=== PATIENT | female | born 1965 | race Caucasian/White ===

== ENCOUNTER 2018-01-27 07:34 | Day surgery (SDC) | payer MEDICARE, OTHER ==
[2018-01-25 10:20] LABS: BASOPHILS % (AUTO) 0.1 % (0-1); EOSINOPHILS # (AUTO) 0.2 X10'3 (0-0.9); EOSINOPHILS % (AUTO) 2.5 % (0-6); LYMPHOCYTES # (AUTO) 1.7 X10'3 (1.1-4.8); MEAN CORPUSCULAR VOLUME 53.2 FL (78-98); MEAN PLATELET VOLUME 7.3 FL (7.4-10.4); MONOCYTES # (AUTO) 0.3 X10'3 (0-0.9); MONOCYTES % (AUTO) 4.7 % (2-12); NEUTROPHILS # (AUTO) 5.1 X10'3 (1.8-7.7); NEUTROPHILS % (AUTO) 69.7 % (42-75); PRE OP HEMATOCRIT 24.7 % (35.0-45.0); PRE OP PLATELET COUNT 139 X10'3 (140-440); RED BLOOD COUNT 4.64 X10'6 (4.20-5.60); RED CELL DISTRIBUTION WIDTH 23.5 % (11.5-14.5)
[2018-01-25 10:32] LABS: COLOR,URINE Yellow (Yellow); GLUCOSE, URINE Negative (Neg); KETONES,URINE Negative (Neg); LEUKOCYTE ESTERASE ,URINE Negative (Neg); NITRITES, URINE Negative (Neg); OCCULT BLOOD,URINE Negative (Neg); PH,URINE 5.5 (4.8-8.0); PROTEIN,URINE Negative (Neg)
[2018-01-25 10:36] LABS: ALBUMIN 3.7 G/DL (3.4-5.0); ALBUMIN/GLOBULIN RATIO 1.1 (1.1-1.5); ALKALINE PHOSPHATASE 61 IU/L (46-116); BLOOD UREA NITROGEN 13 MG/DL (7-18); BUN/CREATININE RATIO 24.5 (6.6-38.0); CALCIUM 8.7 MG/DL (8.5-10.1); CHLORIDE 106 MMOL/L (99-107); CREATININE 0.53 MG/DL (0.40-0.90); PRE OP ALT 18 U/L (30-65); PRE OP ANION GAP 8 (8-16); PRE OP AST 12 U/L (10-37); PRE OP BILIRUB, TOTAL 0.5 MG/DL (0.0-1.0); PRE OP GLUCOSE 93 MG/DL (70-104); PRE OP SODIUM 142 MMOL/L (135-145); TOTAL CARBON DIOXIDE 28.4 MMOL/L (24-32); TOTAL PROTEIN 7.2 G/DL (6.4-8.2); eGFR > 90 ML/MIN
[2018-01-25 10:37] LABS: UA COLLECTION TYPE CLN CATCH MIDSTREAM
[2018-01-25 10:38] LABS: CLARITY,URINE CLOUDY (Clear)
[2018-01-25 10:58] LABS: BACTERIA,URINE 2+ /HPF (Neg); RBC,URINE NONE SEEN /HPF (0-2); SQUAMOUS EPITHELIAL CELL,UR MANY /LPF (FEW); WBC,URINE 0-4 /HPF (0-4)
[2018-01-25 10:59] LABS: MUCUS STRANDS FEW /LPF (Neg)
[2018-01-25 11:00] LABS: PRE OP HEMOGLOBIN 7.4 g/dL (12.0-16.0)
[2018-01-25 11:03] LABS: PLATELET ESTIMATE DECREASED
[2018-01-25 11:04] LABS: ANISOCYTOSIS 3+; HYPOCHROMASIA 1+; MICROCYTOSIS 3+; POLYCHROMASIA 1+; SPHEROCYTES FEW; TEAR DROP CELLS 1+
[2018-01-25 11:05] LABS: ELLIPTOCYTES 1+; STOMATOCYTES FEW; TARGET CELLS FEW
[~2018-01-27] VITALS: Ht 157.5 cm; Wt 93.0 kg
[2018-01-27] VITALS (14 sets, daily range): BP systolic 108–141; BP diastolic 54–91
[~2018-01-27 07:34] MED LIST: LISI10TA4 PO; METF500T4 PO; ceFOXitin 2 GM ADDvantage bag 100 ML IV ONE; famotidine 20mg tablet PO ONE; ringers solution, lacted 1,000 ML IV SCH
[2018-01-27] MEDS ORDERED: LIDOcaine 1% (10mg/ml) 2ml vial ONE (08:26)
[2018-01-27] MEDS ORDERED: BUPIVAcaine/PF 2.5 mg/ml (0.25%) 30ml vial ONE (10:23)
[2018-01-27] MEDS ORDERED: ceFAZolin 1000mg inj ONE (10:23)
[2018-01-27] MEDS ORDERED: fentaNYL/PF 50MCG/1 ML 2ML syringe ONE (10:40)
[2018-01-27] MEDS ORDERED: midazolam 2 mg/2 ml injection ONE (10:40)
[2018-01-27] MEDS ORDERED: propofol inj 20 ML IV ONE (10:42)
[2018-01-27] MEDS ORDERED: rocuronium 10mg/ml inj IV ONE (10:42)
[2018-01-27] MEDS ORDERED: LIDOcaine 2% (20mg/ml) 5ml vial ONE (10:42)
[2018-01-27] MEDS ORDERED: sevoflurane 250ml liquid IH ONE (10:55)
[2018-01-27] MEDS ORDERED: glycopyrrolate 0.2mg/ml inj ONE (11:38)
[2018-01-27] MEDS ORDERED: neostigmine methylsulfate 1 MG/ML 10ml vial ONE (11:38)
[2018-01-27] MEDS ORDERED: ondansetron/PF 4mg/2ml inj ONE (11:39)
[2018-01-27] MEDS ORDERED: ondansetron/PF 4mg/2ml inj IV PRN (11:45)
[2018-01-27] MEDS ORDERED: meperidine/PF 50mg/ml syringe IV PRN ×3 (11:45)
[2018-01-27] MEDS ORDERED: morphine 4 MG/ML inj SYRINge IV PRN (11:45)
[2018-01-27] MEDS ORDERED: ringers solution, lacted 1,000 ML IV SCH (11:45)
[2018-01-27] MEDS ORDERED: proCHLORperazine 10 MG/2 ml inj IV PRN (11:45)
[2018-01-27] MEDS: morphine 4 MG/ML inj SYRINge IV PRN ×2 (12:51→13:17)
[2018-01-27] MEDS ORDERED: traMADol 50MG tablet PO ONE (13:35)
== END 2018-01-27 14:52 | disposition home or self-care (01) ==
LOC: PAS 07:34
PROVIDERS: ATTEND Surgery
DX: K80.10 Calculus of gallbladder with chronic cholecystitis without obstruction (principal); M19.90 Unspecified osteoarthritis, unspecified site; E11.9 Type 2 diabetes mellitus without complications; E66.9 Obesity, unspecified; F32.9 Major depressive disorder, single episode, unspecified; I10 Essential (primary) hypertension; Z98.890 Other specified postprocedural states; Z98.51 Tubal ligation status; Z90.89 Acquired absence of other organs; Z96.651 Presence of right artificial knee joint; Z79.84 Long term (current) use of oral hypoglycemic drugs; Z72.89 Other problems related to lifestyle; Z79.899 Other long term (current) drug therapy; Z91.040 Latex allergy status; Z88.6 Allergy status to analgesic agent; Z88.8 Allergy status to other drugs, medicaments and biological substances; Z68.37 Body mass index [BMI] 37.0-37.9, adult
CPT/HCPCS: 36415; 47562; 80053; 81001; 82948; 85025; 86885; 86900; 86901; 93005; J0690; J0694; J2001; J2175; J2250; J2270; J2405; J2704; J2710; J3010; J3490; J7030; J7120; 88304; A7000

== ENCOUNTER 2018-06-11 08:45 | Inpatient (IN) | payer MEDICARE, OTHER ==
[2018-06-07 15:25] LABS: BASOPHILS % (AUTO) 0.3 % (0-1); EOSINOPHILS # (AUTO) 0.1 X10'3 (0-0.9); EOSINOPHILS % (AUTO) 1.7 % (0-6); HEMOGLOBIN A1C 5.6 % (4.5-6.2); LYMPHOCYTES # (AUTO) 2.1 X10'3 (1.1-4.8); LYMPHOCYTES % (AUTO) 28.7 % (21-51); MEAN CORPUSCULAR HEMOGLOBIN 25.5 PG (27.0-31.0); MEAN CORPUSCULAR HGB CONC 32.2 % (33.0-36.5); MEAN CORPUSCULAR VOLUME 79.2 FL (78-98); MEAN PLATELET VOLUME 8.7 FL (7.4-10.4); MONOCYTES # (AUTO) 0.3 X10'3 (0-0.9); MONOCYTES % (AUTO) 4.5 % (2-12); NEUTROPHILS # (AUTO) 4.8 X10'3 (1.8-7.7); NEUTROPHILS % (AUTO) 64.8 % (42-75); PRE OP HEMATOCRIT 44.6 % (35.0-45.0); PRE OP HEMOGLOBIN 14.4 g/dL (12.0-16.0); PRE OP INR 0.9 INR; PRE OP PLATELET COUNT 255 X10'3 (140-440); PRE OP PROTIME 9.7 SECONDS (9.0-12.0); RED BLOOD COUNT 5.63 X10'6 (4.20-5.60); RED CELL DISTRIBUTION WIDTH 24.5 % (11.5-14.5)
[2018-06-07 15:32] LABS: ALBUMIN/GLOBULIN RATIO 1.2 (1.1-1.5); ALKALINE PHOSPHATASE 75 IU/L (46-116); BLOOD UREA NITROGEN 22 MG/DL (7-18); BUN/CREATININE RATIO 29.3 (6.6-38.0); CALCIUM 9.5 MG/DL (8.5-10.1); CHLORIDE 104 MMOL/L (99-107); CREATININE 0.75 MG/DL (0.40-0.90); PRE OP ALT 25 U/L (30-65); PRE OP ANION GAP 8 (8-16); PRE OP AST 14 U/L (10-37); PRE OP BILIRUB, TOTAL 0.3 MG/DL (0.0-1.0); PRE OP GLUCOSE 133 MG/DL (70-104); PRE OP POTASSIUM 3.6 MMOL/L (3.4-5.1); PRE OP SODIUM 140 MMOL/L (135-145); TOTAL CARBON DIOXIDE 28.2 MMOL/L (24-32); TOTAL PROTEIN 7.4 G/DL (6.4-8.2); eGFR 81 ML/MIN
[~2018-06-11] VITALS: Ht 160 cm; Wt 91.7 kg
[2018-06-11] VITALS (19 sets, daily range): BP systolic 92–126; BP diastolic 45–89
[~2018-06-11 08:45] MED LIST changes: +Cefazolin 2GM/50ML dext iso,osmotic IVPB IV ONE; +IRON PO; +METF500T PO; -METF500T4 PO; +NORMAL SALINE IV ONE; +TRANEXAMIC ACID IV ONE; +VANCOMYCIN INJ 1000 MG in NORMAL SALINE 250ml IV.SOLN IV ONE; -ceFOXitin 2 GM ADDvantage bag 100 ML IV ONE
[2018-06-11] MEDS ORDERED: TRANEXAMIC ACID IV ONE (09:30)
[2018-06-11] MEDS ORDERED: NORMAL SALINE IV ONE (09:30)
[2018-06-11] MEDS ORDERED: ketorolac trometh. 30mg/ml inj. ONE (11:06)
[2018-06-11] MEDS ORDERED: vancomycin 1,000mg inj ONE (11:06)
[2018-06-11] MEDS ORDERED: ROPIVAcaine 0.5% (5mg/ml) 30ml vial ONE ×2 (11:06→14:30)
[2018-06-11] MEDS ORDERED: tetracaine 1% (10mg/ml) pres. free inj. ONE (12:28)
[2018-06-11] MEDS ORDERED: MIDAZolam 5mg/5ml vial ONE (12:30)
[2018-06-11] MEDS ORDERED: fentaNYL/PF 50MCG/1 ML 2ML syringe ONE (12:30)
[2018-06-11] MEDS ORDERED: morphine 4 MG/ML inj SYRINge IV PRN ×2 (13:35)
[2018-06-11] MEDS ORDERED: proCHLORperazine 10 MG/2 ml inj IV PRN (13:35)
[2018-06-11] MEDS ORDERED: ringers solution, lacted 1,000 ML IV SCH (13:35)
[2018-06-11] MEDS ORDERED: meperidine/PF 25mg/ml syringe IV PRN ×3 (13:35)
[2018-06-11] MEDS ORDERED: ondansetron/PF 4mg/2ml inj IV PRN (13:35)
[2018-06-11] MEDS ORDERED: midazolam 2 mg/2 ml injection ONE (14:05)
[2018-06-11] MEDS ORDERED: HYDROmorphone 1 mg/ml syringe IV PRN (14:55)
[2018-06-11] MEDS ORDERED: acetaminophen 325mg tablet PO PRN (14:55)
[2018-06-11] MEDS ORDERED: diphenhydrAMINE 25mg capsule PO PRN ×2 (14:55)
[2018-06-11] MEDS ORDERED: bisacodyl 10mg suppository rectal RC PRN (14:55)
[2018-06-11] MEDS ORDERED: oxyCODONE IR 5mg (immed. release) tablet PO PRN (14:55)
[2018-06-11] MEDS ORDERED: magnesium hydroxide 30ml (MOM) UD suspension PO PRN (14:55)
[2018-06-11] MEDS: dextrose 5%-normal saline 1,000 ML IV SCH (15:36)
[2018-06-11] MEDS: potassium cl 20mEq in 1/2 NS 1,000 ML IV SCH (17:42)
[2018-06-11] MEDS ORDERED: tranexamic acid inj. 920 MG in normal saline 100ml IV soln 100 ML IV ONE (18:00)
[2018-06-11] MEDS: oxyCODONE IR 5mg (immed. release) tablet PO PRN ×2 (19:01→23:43)
[2018-06-11] MEDS ORDERED: vancomycin/NS 1 GM ADD-VANTAGE 250 ML IV SCH (20:00)
[2018-06-11] MEDS ORDERED: acetaminophen 325mg tablet PO SCH (20:00)
[2018-06-11] MEDS: ketorolac tromethamine 15mg/ml inj. IV SCH (20:06)
[2018-06-11] MEDS: gabapentin 300mg capsule PO SCH (20:07)
[2018-06-11] MEDS: sennosides 8.6mg tablet PO SCH (20:08)
[2018-06-11] MEDS: ceFAZolin 1GM/D5W- ADD-VANTAGE 50 ML IV SCH (23:32)
[2018-06-12] MEDS: dextrose 5%-normal saline 1,000 ML IV SCH ×3 (01:15→21:13)
[2018-06-12 02:00] VITALS: BP 114/78
[2018-06-12] MEDS: potassium cl 20mEq in 1/2 NS 1,000 ML IV SCH ×4 (02:04→22:54)
[2018-06-12] MEDS: ketorolac tromethamine 15mg/ml inj. IV SCH ×3 (02:04→13:50)
[2018-06-12] MEDS: oxyCODONE IR 5mg (immed. release) tablet PO PRN ×5 (05:04→22:29)
[2018-06-12 06:00] VITALS: BP 109/70
[2018-06-12 07:24] LABS: BASOPHILS % (AUTO) 0.5 % (0-1); EOSINOPHILS # (AUTO) 0.1 X10'3 (0-0.9); EOSINOPHILS % (AUTO) 2.5 % (0-6); HEMOGLOBIN 10.9 g/dl (12.0-16.0); LYMPHOCYTES # (AUTO) 1.1 X10'3 (1.1-4.8); LYMPHOCYTES % (AUTO) 19.3 % (21-51); MEAN CORPUSCULAR HEMOGLOBIN 25.6 PG (27.0-31.0); MEAN PLATELET VOLUME 8.7 FL (7.4-10.4); MONOCYTES # (AUTO) 0.3 X10'3 (0-0.9); MONOCYTES % (AUTO) 4.6 % (2-12); NEUTROPHILS # (AUTO) 4.1 X10'3 (1.8-7.7); NEUTROPHILS % (AUTO) 73.1 % (42-75); PLATELET COUNT 159 X10'3 (140-440); RED BLOOD COUNT 4.25 X10'6 (4.20-5.60); RED CELL DISTRIBUTION WIDTH 24.9 % (11.5-14.5); WHITE BLOOD COUNT 5.6 X10'3 (4.5-11.0)
[2018-06-12] MEDS: lisinopril 10 MG tablet PO SCH (08:00)
[2018-06-12] MEDS: gabapentin 300mg capsule PO SCH ×3 (08:13→19:52)
[2018-06-12] MEDS: aspirin 325mg tablet PO SCH (08:13)
[2018-06-12] MEDS: metFORMIN 500mg tablet PO SCH (08:13)
[2018-06-12] MEDS: ceFAZolin 1GM/D5W- ADD-VANTAGE 50 ML IV SCH (08:14)
[2018-06-12] MEDS: ondansetron/PF 4mg/2ml inj IV PRN ×3 (08:19→19:51)
[2018-06-12] MEDS: HYDROmorphone 1 mg/ml syringe IV PRN ×2 (08:21→12:23)
[2018-06-12 08:25] LABS: ANION GAP 6 (8-16); CHLORIDE 107 MMOL/L (99-107); POTASSIUM 4.3 MMOL/L (3.5-5.1); SODIUM 140 MMOL/L (135-145); TOTAL CARBON DIOXIDE 27.4 MMOL/L (24-32)
[2018-06-12 10:00] VITALS: BP 127/76
[2018-06-12] MEDS ORDERED: ASPI-1 PO (14:02)
[2018-06-12 18:00] VITALS: BP 131/80
[2018-06-12] MEDS: celeCOXIB 100mg capsule PO SCH (19:51)
[2018-06-12] MEDS: sennosides 8.6mg tablet PO SCH (19:58)
[2018-06-12 22:00] VITALS: BP 131/64
[2018-06-13] MEDS: HYDROmorphone 1 mg/ml syringe IV PRN ×2 (00:34→07:14)
[2018-06-13] MEDS: oxyCODONE IR 5mg (immed. release) tablet PO PRN ×2 (04:01→08:48)
[2018-06-13 06:00] VITALS: BP 93/56
[2018-06-13] MEDS: potassium cl 20mEq in 1/2 NS 1,000 ML IV SCH (06:21)
[2018-06-13] MEDS: dextrose 5%-normal saline 1,000 ML IV SCH (06:21)
[2018-06-13 07:03] LABS: BASOPHILS % (AUTO) 0.2 % (0-1); EOSINOPHILS # (AUTO) 0.2 X10'3 (0-0.9); EOSINOPHILS % (AUTO) 2.8 % (0-6); HEMATOCRIT 36.8 % (35.0-45.0); HEMOGLOBIN 12.3 g/dl (12.0-16.0); LYMPHOCYTES # (AUTO) 1.2 X10'3 (1.1-4.8); LYMPHOCYTES % (AUTO) 16.7 % (21-51); MEAN CORPUSCULAR HEMOGLOBIN 26.5 PG (27.0-31.0); MEAN CORPUSCULAR HGB CONC 33.4 % (33.0-36.5); MEAN CORPUSCULAR VOLUME 79.3 FL (78-98); MEAN PLATELET VOLUME 8.2 FL (7.4-10.4); MONOCYTES # (AUTO) 0.4 X10'3 (0-0.9); MONOCYTES % (AUTO) 5.1 % (2-12); NEUTROPHILS # (AUTO) 5.5 X10'3 (1.8-7.7); NEUTROPHILS % (AUTO) 75.2 % (42-75); PLATELET COUNT 194 X10'3 (140-440); RED BLOOD COUNT 4.64 X10'6 (4.20-5.60); RED CELL DISTRIBUTION WIDTH 25.2 % (11.5-14.5); WHITE BLOOD COUNT 7.4 X10'3 (4.5-11.0)
[2018-06-13] MEDS: lisinopril 10 MG tablet PO SCH (07:03)
[2018-06-13] MEDS: ondansetron/PF 4mg/2ml inj IV PRN (07:04)
[2018-06-13] MEDS: metFORMIN 500mg tablet PO SCH (07:04)
[2018-06-13] MEDS: aspirin 325mg tablet PO SCH (07:04)
[2018-06-13] MEDS: celeCOXIB 100mg capsule PO SCH (07:04)
[2018-06-13] MEDS: gabapentin 300mg capsule PO SCH (07:04)
[2018-06-13 07:50] LABS: PLATELET ESTIMATE NORMAL
[2018-06-13 07:51] LABS: ANISOCYTOSIS 3+; HYPOCHROMASIA 1+; MICROCYTOSIS 1+
[2018-06-13] MEDS ORDERED: acetaminophen 325mg tablet PO PRN (14:55)
== END 2018-06-13 11:30 | disposition home or self-care (01) | DRG 470 ==
LOC: PAS IN 08:45 → EDSTATUS 11:30 → ORTHO 4S 16:30
PROVIDERS: ADMIT Orthopaedic Surgery; ATTEND Orthopaedic Surgery
PROC: 8E0YXBZ Computer Assisted Procedure of Lower Extremity (ICD-10-PCS; 2018-06-11)
PROC: 0MQP0ZZ Repair Left Knee Bursa and Ligament, Open Approach (ICD-10-PCS; 2018-06-11)
PROC: 0MQP0ZZ Repair Left Knee Bursa and Ligament, Open Approach (ICD-10-PCS; 2018-06-11)
PROC: 8E0Y0CZ Robotic Assisted Procedure of Lower Extremity, Open Approach (ICD-10-PCS; 2018-06-11)
PROC: 0SRD0J9 Replacement of Left Knee Joint with Synthetic Substitute, Cemented, Open Approach (ICD-10-PCS; principal; 2018-06-11 12:28)
DX: M17.12 Unilateral primary osteoarthritis, left knee (principal); D62 Acute posthemorrhagic anemia; I10 Essential (primary) hypertension; E11.9 Type 2 diabetes mellitus without complications; M21.00 Valgus deformity, not elsewhere classified, unspecified site; Z88.8 Allergy status to other drugs, medicaments and biological substances; Z88.1 Allergy status to other antibiotic agents; Z91.040 Latex allergy status
CPT/HCPCS: 36415; 80051; 80053; 82948; 83036; 85025; 85610; 85730; 87070; 97110; 97116; 97162; 97530; A6455; A7000; C1713; C1758; C1776; J0690; J1170; J1885; J2250; J2405; J2795; J3010; J3370; J7030; J7042; J7120; Q0163

== ENCOUNTER 2025-01-12 05:18 | Day surgery (SDC) | payer MEDICARE, MEDICAID ==
[2025-01-05 10:21] LABS: BASOPHILS % (AUTO) 0.3 % (0-1); EOSINOPHILS # (AUTO) 0.1 X10'3 (0-0.9); EOSINOPHILS % (AUTO) 1.6 % (0-6); LYMPHOCYTES # (AUTO) 2.2 X10'3 (1.1-4.8); LYMPHOCYTES % (AUTO) 35.3 % (21-51); MEAN CORPUSCULAR HEMOGLOBIN 30.4 PG (27.0-31.0); MEAN CORPUSCULAR HGB CONC 33.7 g/dL (33.0-36.5); MEAN CORPUSCULAR VOLUME 90.1 FL (78-98); MEAN PLATELET VOLUME 7.5 FL (7.4-10.4); MONOCYTES # (AUTO) 0.3 X10'3 (0-0.9); MONOCYTES % (AUTO) 4.4 % (2-12); NEUTROPHILS # (AUTO) 3.7 X10'3 (1.8-7.7); NEUTROPHILS % (AUTO) 58.4 % (42-75); PRE OP HEMATOCRIT 43.5 % (35.0-45.0); PRE OP HEMOGLOBIN 14.7 g/dL (12.0-16.0); PRE OP PLATELET COUNT 251 X10'3 (140-440); PRE OP WHITE BLOOD COUNT 6.3 10'3 (4.8-10.8); RED BLOOD COUNT 4.83 X10'6 (4.20-5.60); RED CELL DISTRIBUTION WIDTH 13.1 % (11.5-14.5)
[2025-01-05 10:22] LABS: BILIRUBIN,URINE NEGATIVE (Neg); CLARITY,URINE CLEAR (Clear); COLOR,URINE YELLOW (Yellow); GLUCOSE, URINE NEGATIVE (Neg); KETONES,URINE NEGATIVE (Neg); LEUKOCYTE ESTERASE ,URINE TRACE (Neg); NITRITES, URINE POSITIVE (Neg); OCCULT BLOOD,URINE NEGATIVE (Neg); PROTEIN,URINE NEGATIVE (Neg); UROBILINOGEN,URINE 0.2 E.U/dL (0.2-1.0)
[2025-01-05 10:24] LABS: UA COLLECTION TYPE CLN CATCH MIDSTREAM
[2025-01-05 10:32] LABS: BACTERIA,URINE 4+ /HPF (Neg); WBC,URINE 20-30 /HPF (0-4)
[2025-01-05 10:33] LABS: MUCUS STRANDS FEW /LPF (Neg); SQUAMOUS EPITHELIAL CELL,UR FEW /LPF (FEW); TRANSITIONAL EPI CELLS,URINE FEW /HPF
[2025-01-05 10:44] LABS: ALBUMIN/GLOBULIN RATIO 1.1 (1.1-1.5); ALKALINE PHOSPHATASE 72 IU/L (46-116); BLOOD UREA NITROGEN 15 MG/DL (7-18); BUN/CREATININE RATIO 25.4 (10.0-20.0); CALCIUM 9.3 MG/DL (8.5-10.1); CHLORIDE 107 MMOL/L (99-107); CREATININE 0.59 MG/DL (0.40-0.90); PRE OP ALT 37 U/L (30-65); PRE OP ANION GAP 6 (8-16); PRE OP AST 14 U/L (10-37); PRE OP BILIRUB, TOTAL 0.6 MG/DL (0.0-1.0); PRE OP GLUCOSE 96 MG/DL (70-104); PRE OP POTASSIUM 4.1 MMOL/L (3.4-5.1); PRE OP SODIUM 142 MMOL/L (135-145); TOTAL CARBON DIOXIDE 29.2 MMOL/L (24-32); TOTAL PROTEIN 7.7 G/DL (6.4-8.2); eGFR > 90 ML/MIN
[~2025-01-12] VITALS: Ht 157.5 cm; Wt 97.3 kg
[2025-01-12] VITALS (13 sets, daily range): BP systolic 114–142; BP diastolic 65–87; PULSE 64–82; RESP 12–21; TEMP 97.3; O2SAT 86–100
[~2025-01-12 05:18] MED LIST changes: -Cefazolin 2GM/50ML dext iso,osmotic IVPB IV ONE; -IRON PO; +LISI10TA27 PO; -LISI10TA4 PO; -NORMAL SALINE IV ONE; +OMEG-270 PO; +SUMA25TA9 PO; -TRANEXAMIC ACID IV ONE; -VANCOMYCIN INJ 1000 MG in NORMAL SALINE 250ml IV.SOLN IV ONE; -famotidine 20mg tablet PO ONE; -ringers solution, lacted 1,000 ML IV SCH
[2025-01-12] MEDS: ceFAZolin 2gm in dextrose, iso 50 ML IV ONE (05:45)
[2025-01-12] MEDS: famotidine 20mg tablet PO ONE (05:53)
[2025-01-12] MEDS: ringers solution, lacted 1,000 ML IV SCH (05:53)
[2025-01-12] MEDS ORDERED: bacitracin 15gm ointment TP ONE (06:35)
[2025-01-12] MEDS ORDERED: vancomycin 1,000mg inj ONE (06:36)
[2025-01-12] MEDS ORDERED: BUPIVAcaine 2.5mg/ml inj 50ml vial (contains preservative) ONE (06:36)
[2025-01-12] MEDS ORDERED: cloNIDine hcl/PF 100mcg/ml inj ONE (07:22)
[2025-01-12] MEDS ORDERED: sevoflurane 250ml liquid IH ONE (07:22)
[2025-01-12] MEDS ORDERED: fentaNYL/PF 50MCG/1 ML 2ML syringe ONE (07:27)
[2025-01-12] MEDS ORDERED: midazolam 1 mg/ML 2ml injection ONE (07:29)
[2025-01-12] MEDS ORDERED: ondansetron/PF 4mg/2ml inj ONE (07:50)
[2025-01-12] MEDS ORDERED: propofol inj 20 ML IV ONE (07:50)
[2025-01-12] MEDS ORDERED: 0.9 % SODIUM CHLORIDE 10 ML VIAL ONE (07:50)
[2025-01-12] MEDS ORDERED: dexamethasone sod phosphate 4mg/ml inj. ONE (07:50)
[2025-01-12] MEDS ORDERED: LIDOcaine 2% (20mg/ml) 5ml vial ONE (07:50)
[2025-01-12] MEDS ORDERED: albuterol 60 PUFF/8GM Inhaler (90mcg/1 puff) IH ONE (07:51)
[2025-01-12] MEDS ORDERED: HYDROmorphone/PF 0.2 MG/ML SYRINGE IV PRN ×2 (07:55)
[2025-01-12] MEDS ORDERED: ringers solution, lacted 1,000 ML IV SCH (07:55)
[2025-01-12] MEDS ORDERED: labetalol 20mg/4ml (5mg/ml) syringe IV PRN (07:55)
[2025-01-12] MEDS ORDERED: morphine 4 MG/ML inj SYRINge IV PRN (07:55)
[2025-01-12] MEDS ORDERED: ondansetron/PF 4mg/2ml inj IV PRN (07:55)
[2025-01-12] MEDS ORDERED: meperidine/PF 25mg/ml syringe IV PRN (07:55)
[2025-01-12] MEDS ORDERED: morphine 2 MG/ML inj. syringe IV PRN (07:55)
[2025-01-12] MEDS ORDERED: proCHLORperazine 10 MG/2 ml inj IV PRN (07:55)
[2025-01-12] MEDS ORDERED: hydrALAZINE 20mg/ml inj. IV PRN (07:55)
[2025-01-12] MEDS ORDERED: ROPIVAcaine 0.5% (5mg/ml) 30ml vial ONE (08:08)
[2025-01-12] MEDS: acetaminophen 1,000mg/100ml IV 100 ML IV STA (09:33)
== END 2025-01-12 10:02 | disposition home or self-care (01) ==
LOC: PAS 05:18
PROVIDERS: ATTEND Podiatrist Foot & Ankle Surgery
DX: S92.351A Displaced fracture of fifth metatarsal bone, right foot, initial encounter for closed fracture (principal); S96.811A Strain of other specified muscles and tendons at ankle and foot level, right foot, initial encounter; G43.909 Migraine, unspecified, not intractable, without status migrainosus; M19.90 Unspecified osteoarthritis, unspecified site; E11.9 Type 2 diabetes mellitus without complications; X58.XXXA Exposure to other specified factors, initial encounter; Y93.89 Activity, other specified; Y92.89 Other specified places as the place of occurrence of the external cause; Y99.8 Other external cause status; Z79.899 Other long term (current) drug therapy; Z96.653 Presence of artificial knee joint, bilateral; Z90.49 Acquired absence of other specified parts of digestive tract; Z98.890 Other specified postprocedural states; Z91.040 Latex allergy status; G89.18 Other acute postprocedural pain; M17.12 Unilateral primary osteoarthritis, left knee; Z82.49 Family history of ischemic heart disease and other diseases of the circulatory system
CPT/HCPCS: 28122; 28200; 36415; 64445; 80053; 81001; 82948; 85025; 87077; 87088; 87186; A4215; A4618; A6223; A6402; A6449; A7000; J0131; J0690; J0735; J1100; J2003; J2250; J2405; J2704; J2795; J3010; J7030; J7120; Z7506; Z7512; Z7610; J3370; J3490